=== PATIENT | female | born 1960 | race Two or more races ===

== ENCOUNTER 2021-04-13 14:07 | Outpatient (CLI) | payer OTHER | END 2021-04-13 23:59 | disposition home or self-care (01) | LOC: MSC 14:07 | PROVIDERS: ATTEND Internal Medicine | DX: Q63.2 Ectopic kidney (principal); I10 Essential (primary) hypertension; E78.5 Hyperlipidemia, unspecified; I25.10 Atherosclerotic heart disease of native coronary artery without angina pectoris; E66.9 Obesity, unspecified; Z68.30 Body mass index [BMI] 30.0-30.9, adult; Z79.899 Other long term (current) drug therapy ==